=== PATIENT | female | born 1995 | race Caucasian/White ===

== ENCOUNTER 2022-03-25 14:21 | Emergency (ER) | payer SELFPAY ==
[2022-03-25] MEDS ORDERED: Ketorolac Tromethamine 30 MG/ML VIAL ONE (15:10)
[2022-03-25] MEDS ORDERED: Dexamethasone 10 MG/ML VIAL ONE (15:10)
== END 2022-03-25 15:53 | disposition home or self-care (01) ==
LOC: ERS 14:21
DX: B34.9 Viral infection, unspecified (principal); F17.290 Nicotine dependence, other tobacco product, uncomplicated
CPT/HCPCS: 87081; 87430; 87804; 96372; 99282; J1100; J1885